=== PATIENT | male | born 1945 | race Two or more races ===

== ENCOUNTER 2023-12-15 11:10 | Outpatient (RCR) | payer MEDICARE, OTHER, SELFPAY | END 2023-12-15 23:59 | disposition home or self-care (01) | LOC: RPT 11:10 | PROVIDERS: ATTENDING PHYSICIAN Internal Medicine | DX: I89.0 Lymphedema, not elsewhere classified (principal) | CPT/HCPCS: 97162; 97535; 97760 ==

== ENCOUNTER 2024-01-08 07:47 | Outpatient (RCR) | payer MEDICARE, OTHER, SELFPAY | END 2024-01-08 08:26 | disposition home or self-care (01) | LOC: RPT 07:47 | PROVIDERS: ATTENDING PHYSICIAN Internal Medicine | DX: I89.0 Lymphedema, not elsewhere classified (principal); Z73.6 Limitation of activities due to disability | CPT/HCPCS: 97535 ==

== ENCOUNTER 2025-01-11 06:29 | Outpatient (RCR) | payer MEDICARE, OTHER, SELFPAY | END 2025-01-11 23:59 | disposition home or self-care (01) | LOC: RPT 06:29 | PROVIDERS: ATTENDING PHYSICIAN Internal Medicine; FAMILY PHYSICIAN Internal Medicine | DX: I89.0 Lymphedema, not elsewhere classified (principal); Z73.6 Limitation of activities due to disability; R26.2 Difficulty in walking, not elsewhere classified; R20.2 Paresthesia of skin; Z85.51 Personal history of malignant neoplasm of bladder; Z92.21 Personal history of antineoplastic chemotherapy | CPT/HCPCS: 97162; 97530; 97760; 97763 ==